=== PATIENT | female | born 1965 | race Caucasian/White ===

== ENCOUNTER 2017-10-29 03:19 | Emergency (ER) | payer MEDICAID ==
[~2017-10-29] VITALS: Ht 152.4 cm; Wt 87.5 kg
[2017-10-29 03:30] VITALS: BP 171/96
--- NOTE | 2017-10-29 03:36 | NUR ---
PT TO ER BED 2
--- NOTE | 2017-10-29 03:38 | NUR ---
PATIENT PRESENTS TO ED WITH GENERALIZED ERYTHEMA AND ITCHYNESS SINCE 9 PM.PATIANT DENIES EATING OR DRINKING ANYTHING NEW. PT STATES DENIES N/V/D; SKIN IS PINK/WARM/DRY; AAOX4 WITH EVEN AND STEADY GAIT; LUNGS CLEAR BL; HR EVEN AND REGULAR; PT DENIES ANY FEVER, CP, SOB, OR COUGH AT THIS TIME; PATIENT STATES PAIN OF 0/10 AT THIS TIME; VSS; PATIENT POSITIONED FOR COMFORT; HOB ELEVATED; BEDRAILS UP X1; BED DOWN. ER MD MADE AWARE OF PT STATUS.
[2017-10-29] MEDS ORDERED: LISI-420 PO (03:43)
[2017-10-29] MEDS ORDERED: HYDR25TA32 PO (03:44)
[2017-10-29] MEDS ORDERED: AMLO10TA PO (03:44)
[2017-10-29] MEDS ORDERED: diphenhydrAMINE 50 MG/ML VIAL IM ONE (04:05)
[2017-10-29] MEDS ORDERED: methylPREDNISolone SS 125 MG/2 ML VIAL IM ONE (04:05)
[2017-10-29 04:29] VITALS: BP 171/96
--- NOTE | 2017-10-29 04:29 | NUR ---
Patient discharged with v/s stable. Written and verbal after care instructions given and explained. Patient alert, oriented and verbalized understanding of instructions. Ambulatory with steady gait. All questions addressed prior to discharge. ID band removed. Patient advised to follow up with PMD. Rx of PREDNISONE, BENADRYL given. Patient educated on indication of medication including possible reaction and side effects. Opportunity to ask questions provided and answered.
== END 2017-10-29 04:29 | disposition home or self-care (01) ==
LOC: MED 03:19
DX: T78.40XA Allergy, unspecified, initial encounter (principal); L29.9 Pruritus, unspecified; I10 Essential (primary) hypertension; Z79.899 Other long term (current) drug therapy; X58.XXXA Exposure to other specified factors, initial encounter
CPT/HCPCS: 96372; 99284; J1200; J2930

== ENCOUNTER 2022-04-14 09:52 | Day surgery (SDC) | payer OTHER ==
[~2022-04-14] VITALS: Ht 160 cm; Wt 99.8 kg
[~2022-04-14 09:52] MED LIST: AMLO10TA PO; HYDR25TA32 PO; LISI-487 PO
[2022-04-14] MEDS ORDERED: diphenhydrAMINE 50 MG/ML VIAL ONE (10:32)
[2022-04-14] MEDS ORDERED: fentaNYL citrate 0.05 MG/ML VIAL ONE (10:32)
[2022-04-14] MEDS ORDERED: LIDOCAINE 2% 100 MG/5 ML UJET TP ONE (10:32)
[2022-04-14] MEDS ORDERED: MIDAZOLAM 5 MG/5 ML VIAL ONE ×3 (10:32→10:43)
[2022-04-14] MEDS ORDERED: MIDAZOLAM 2 MG/2 ML VIAL ONE (10:34)
[2022-04-14] MEDS ORDERED: MIDAZOLAM 5 MG/5 ML VIAL IV ONE (11:40)
[2022-04-14] MEDS ORDERED: fentaNYL citrate 0.05 MG/ML VIAL IVP ONE (11:40)
== END 2022-04-14 12:03 | disposition home or self-care (01) ==
LOC: MMU 09:52 → MOR 09:52 → MMU 10:20 → MOR 12:03
PROVIDERS: ATTEND Internal Medicine Gastroenterology
DX: R19.5 Other fecal abnormalities (principal); D12.4 Benign neoplasm of descending colon; K21.9 Gastro-esophageal reflux disease without esophagitis; I10 Essential (primary) hypertension; E78.5 Hyperlipidemia, unspecified; E66.9 Obesity, unspecified; Z79.899 Other long term (current) drug therapy
CPT/HCPCS: 45385; 87426; J2250; J3010; J1200